=== PATIENT | male | born 1970 ===

== ENCOUNTER 2017-10-02 11:21 | Emergency (ER) | payer SELFPAY ==
[2017-10-02 11:57] VITALS: BP 130/86
--- NOTE | 2017-10-02 14:26 | Emergency Department Report ---
Blank Doc - Documentation Documentation: Patient is a 46-year-old -Portuguese male who is presenting with epigastric pain. Patient states the discomfort is been approximately a week and is stabbing sharp pain. Patient states is intermittent and is worse in the mornings when he wakes up as well as after he eats certain foods. Patient states he has discomfort when he eats fried foods this week. Patient denies nausea vomiting diarrhea fever at this time. Patients will have basic lab work done as well as a lipase and an ultrasound of his abdomen to rule out gallstones
[2017-10-02 14:45] LABS: Basophils # (Auto) 0.1 K/mm3 (0.0-0.1); Basophils % (Auto) 1.1 % (0.0-1.8); Eosinophils % (Auto) 0.5 % (0.0-4.3); Hematocrit 43.6 % (35.5-45.6); Hemoglobin 14.6 gm/dl (11.8-15.2); Lymphocytes # (Auto) 1.3 K/mm3 (1.2-5.4); Lymphocytes % (Auto) 25.8 % (13.4-35.0); Mean Corpuscular HGB Conc 34 % (32-34); Mean Corpuscular Hemoglobin 30 pg (28-32); Mean Corpuscular Volume 89 fl (84-94); Monocytes # (Auto) 0.2 K/mm3 (0.0-0.8); Platelet Count 269 K/mm3 (140-440); Red Blood Count 4.92 M/mm3 (3.65-5.03); Red Cell Distribution Width 13.8 % (13.2-15.2)
[2017-10-02 15:03] LABS: Alanine Aminotransferase 10 units/L (7-56); Albumin 4.4 g/dL (3.9-5); BUN/Creatinine Ratio 13; Blood Urea Nitrogen 10 mg/dL (9-20); Calcium 9.1 mg/dL (8.4-10.2); Hemolysis Index 5; Lipase 17 units/L (13-60)
--- NOTE | 2017-10-02 16:16 | Ultrasound Report ---
FINAL REPORT EXAM: US ABDOMEN LIMITED HISTORY: epigastric pain TECHNIQUE: Limited abdomen ultrasound. PRIORS: None currently available. FINDINGS: Liver: Unremarkable. No distinct lesions. Gallbladder: No gallstones or sludge. Wall is within normal limits. 3.0 mm common bile duct is within normal limits. Pancreas: Provided images are unremarkable. Right kidney: 10.5 cm. Unremarkable. Proximal aorta measures 2.1 cm. IMPRESSION: Unremarkable.
--- NOTE | 2017-10-02 16:32 | Emergency Department Report ---
HPI - General Chief Complaint: Chest Pain Time Seen by Provider: 10/02/17 14:15 - HPI HPI: 46-year-old male that comes in for complaint of epigastric pain that he's had for about 2-3 days. Patient reports that is worse in the morning and after he eats greasy foods. Reports that is intermittent and stabbing. He reports he gets better with a little bit of Pepto-Bismol. Denies any fever chills no nausea no vomiting does admit to belching denies any alcohol use currently takes no medications and has no past medical history. ED Past Medical Hx - Surgical History Additional Surgical History: back surgery - Social History Smoking Status: Never Smoker Substance Use Type: Alcohol - Medications Home Medications: Home Medications Medication Instructions Recorded Confirmed Last Taken Type Ranitidine HCl [Zantac 150 MG TAB] 150 mg PO BID PRN #30 tablet 10/02/17 Unknown Rx ED Review of Systems ROS: Stated complaint: ABDOMINAL/CHEST PAIN Other details as noted in HPI Constitutional: denies: chills, fever Eyes: denies: eye pain, eye discharge, vision change ENT: denies: ear pain, throat pain Respiratory: denies: cough, shortness of breath, wheezing Cardiovascular: denies: chest pain, palpitations Endocrine: no symptoms reported Gastrointestinal: abdominal pain (if epigastric). denies: nausea, vomiting, diarrhea, constipation Genitourinary: denies: urgency, dysuria Musculoskeletal: denies: back pain, joint swelling, arthralgia Skin: denies: rash, lesions Neurological: denies: headache, weakness, paresthesias Psychiatric: denies: anxiety, depression Hematological/Lymphatic: denies: easy bleeding, easy bruising Physical Exam - Physical Exam Vital Signs: Vital Signs 10/02/17 11:54 Temperature 98.1 F Pulse Rate 82 Respiratory 16 Rate Blood Pressure 130/86 O2 Sat by Pulse 100 Oximetry Physical Exam: GENERAL APPEARANCE: Well developed, well nourished, in no acute distress. SKIN: Inspection of the skin reveals no rashes, ulcerations or petechiae. HEENT: The sclerae were anicteric and conjunctivae were pink and moist. Extraocular movements were intact and pupils were equal, round, and reactive to light with normal accommodation. External inspection of the ears and nose showed no scars, lesions, or masses. Lips, teeth, and gums showed normal mucosa. The oral mucosa, hard and soft palate, tongue and posterior pharynx were normal. NECK: Supple and symmetric. There was no thyroid enlargement, and no tenderness , or masses were felt. CHEST: Normal AP diameter and normal contour without any kyphoscoliosis. LUNGS: Auscultation of the lungs revealed normal breath sounds without any other adventitious sounds or rubs. CARDIOVASCULAR: There was a regular rate and rhythm without any murmurs, gallops , rubs. The carotid pulses were normal and 2+ bilaterally without bruits. Peripheral pulses were 2+ and symmetric. ABDOMEN: Soft and nontender with normal bowel sounds. The liver edge was nontender. The spleen was not palpable. There were no inguinal or umbilical hernias noted. No ascites was noted. LYMPH NODES: No lymphadenopathy was appreciated in the neck, MUSCULOSKELETAL: Gait was normal. There was no tenderness or effusions noted. Muscle strength and tone were normal. EXTREMITIES: No cyanosis, clubbing or edema. NEUROLOGIC: Alert and oriented x 3. Normal affect. Gait was normal. Sensation to touch was normal. ED Course Vital Signs 10/02/17 11:54 Temperature 98.1 F Pulse Rate 82 Respiratory 16 Rate Blood Pressure 130/86 O2 Sat by Pulse 100 Oximetry ED Medical Decision Making - Lab Data Result diagrams: 10/02/17 14:35 10/02/17 14:35 - Radiology Data Radiology results: report reviewed Abdominal x-ray impressions unremarkable. - Medical Decision Making Patient has been evaluated by this provider past check as well as Dr. Jose. CBC is within normal limits. Abdominal x-ray unremarkable. Patient currently has no pain or discomfort at this time. With discharge patient on Zantac's when necessary. Discussed the patient is to follow with a primary care provider and [facility] Patient verbalized understanding. Critical care attestation.: If time is entered above; I have spent that time in minutes in the direct care of this critically ill patient, excluding procedure time. ED Disposition Clinical Impression: Epigastric abdominal pain Disposition: DC-01 TO HOME OR SELFCARE Is pt being admited?: No Does the pt Need Aspirin: No Condition: Stable Instructions: Abdominal Pain (ED) Additional Instructions: You can take Zantac twice a day as needed for epigastric discomfort. I recommend to avoid greasy spicy foods. Also recommend not lay down within 4 hours of last meal. I recommend provider. I have listed one below. Prescriptions: Ranitidine HCl [Zantac 150 MG TAB] 150 mg PO BID PRN #30 tablet PRN Reason: Pain Referrals: PRIMARY CARE, [Primary Care Provider] - 3-5 Days Forms: Work/School Release Form(ED)
== END 2017-10-02 16:44 | disposition home or self-care (01) ==
LOC: ED 11:21
DX: R10.13 Epigastric pain (principal); Z88.0 Allergy status to penicillin
CPT/HCPCS: 36415; 76705; 80053; 83690; 85025; 93005; 93010